=== PATIENT | female | born 1995 | race African-American/Black ===

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

== ENCOUNTER 2017-03-18 16:30 | Emergency (ER) | payer OTHER ==
[~2017-03-18] VITALS: Ht 157.5 cm; Wt 100.0 kg
[~2017-03-18 16:30] MED LIST changes: +VENLAFAXINE HC150 M1 PO
[2017-03-18 17:24] LABS: APPEARANCE SL.HAZY ((CLEAR)); BILIRUBIN NEGATIVE; BLOOD NEGATIVE; COLOR YELLOW ((YELLOW)); GLUCOSE (STRIP) NEGATIVE; KETONES NEGATIVE; LEUKOCYTES LARGE; NITRITE NEGATIVE; PROTEIN (STRIP) NEGATIVE; SPECIFIC GRAVITY 1.012 (1.000-1.030); UROBILINOGEN 0.2 MG/DL (0.2-1.0)
[2017-03-18 17:31] LABS: BACTERIA RARE /HPF; EPITHELIAL CELLS 1+ /HPF; MUCUS TRACE /LPF; RED BLOOD CELLS 0-5 /HPF (0-5)
[2017-03-18 17:33] LABS: AMPHETAMINE NEGATIVE (500 ng/mL); BARBITURATES NEGATIVE (200 ng/mL); BENZODIAZEPINES NEGATIVE (150 ng/mL); BUPRENORPHINE NEGATIVE (10 ng/mL); COCAINE NEGATIVE (150 ng/mL); METHADONE NEGATIVE (200 ng/mL); METHAMPHETAMINE NEGATIVE (500 ng/mL); OPIATES (MORPHINE) NEGATIVE (100 ng/mL); OXYCODONE NEGATIVE (100 ng/mL); PHENCYCLIDINE NEGATIVE (25 ng/mL); PROPOXYPHENE NEGATIVE (300 ng/mL); THC CANNABINOIDS NEGATIVE (50 ng/mL); TRICYCLIC ANTIDEPRESSANTS NEGATIVE (300 ng/mL)
[2017-03-18 18:05] LABS: ALBUMIN 4.2 g/dL (3.2-4.8); CHLORIDE 107 mEq/L (99-109); POTASSIUM 3.9 mEq/L (3.7-5.4); SODIUM 141 mEq/L (136-147)
[2017-03-18 18:08] LABS: GLUCOSE 98 mg/dL (70-99); TOTAL PROTEIN 7.5 g/dL (6.4-8.3)
[2017-03-18 18:09] LABS: TOTAL BILIRUBIN 0.2 mg/dL (0.0-1.0)
[2017-03-18 18:10] LABS: SERUM ETHYL ALCOHOL < 10 mg/dL
[2017-03-18 18:11] LABS: ALKALINE PHOSPHATASE 92 IU/L (3-129); CREATININE 0.7 mg/dL (0.6-1.3); GFR ESTIMATE (CALCULATED) > 59 mL/min/
[2017-03-18 18:12] LABS: UREA NITROGEN (BUN) 5 mg/dL (9-23)
[2017-03-18 18:13] LABS: AST (GOT) 23 IU/L (2-34)
[2017-03-18 18:14] LABS: ALT (GPT) 12 IU/L (3-49)
[2017-03-18 18:23] LABS: HEMATOCRIT 31.9 % (36.0-46.0); HEMOGLOBIN 9.3 G/DL (11.9-15.5); MCH 19.1 PG (29.0-34.0); MCHC 29.2 G/DL (30.0-36.0); MCV 65.6 FL (83-99); NRBC (%) 0.2 /100 WBC (0-0); PLATELET COUNT 729 K/uL (156-360); RBC DIS.WIDTH-SD 43.8 % (39-53); RED BLOOD COUNT 4.86 M/uL (3.80-5.20); WHITE BLOOD COUNT 10.1 K/uL (4.1-10.2)
[2017-03-18 20:32] VITALS: BP 126/78
== END 2017-03-18 20:48 | disposition home or self-care (01) ==
LOC: EME 16:30
PROVIDERS: Emergency Medicine
DX: F32.9 Major depressive disorder, single episode, unspecified (principal); F60.3 Borderline personality disorder; Z04.6 Encounter for general psychiatric examination, requested by authority; F43.10 Post-traumatic stress disorder, unspecified; K21.9 Gastro-esophageal reflux disease without esophagitis; F17.200 Nicotine dependence, unspecified, uncomplicated; Z88.6 Allergy status to analgesic agent
CPT/HCPCS: 80053; 81003; 85027; 90837; 99281; 99285; G0480

== ENCOUNTER 2017-04-14 13:43 | Emergency (ER) | payer OTHER ==
[~2017-04-14] VITALS: Ht 157.5 cm; Wt 98.3 kg
[2017-04-14 14:38] LABS: CHLORIDE 107 mEq/L (99-109); HEMATOCRIT 32.6 % (36.0-46.0); HEMOGLOBIN 9.4 G/DL (11.9-15.5); MCH 18.7 PG (29.0-34.0); MCHC 28.8 G/DL (30.0-36.0); MCV 64.7 FL (83-99); PLATELET COUNT 725 K/uL (156-360); POTASSIUM 3.8 mEq/L (3.7-5.4); RBC DIS.WIDTH-CV 20.2 % (11.8-14.6); RBC DIS.WIDTH-SD 44.4 % (39-53); RED BLOOD COUNT 5.04 M/uL (3.80-5.20); SODIUM 143 mEq/L (136-147); WHITE BLOOD COUNT 14.2 K/uL (4.1-10.2)
[2017-04-14 14:40] LABS: GLUCOSE 78 mg/dL (70-99)
[2017-04-14 14:44] LABS: CREATININE 0.7 mg/dL (0.6-1.3); GFR ESTIMATE (CALCULATED) > 59 mL/min/; UREA NITROGEN (BUN) 15 mg/dL (9-23)
[2017-04-14 14:51] LABS: QUANTITATIVE HCG < 4.0 MIU/ML
[2017-04-14 16:34] VITALS: BP 138/98
== END 2017-04-14 16:47 ==
LOC: EME 13:43
PROVIDERS: Emergency Medicine
DX: R55 Syncope and collapse (principal); F32.9 Major depressive disorder, single episode, unspecified; K21.9 Gastro-esophageal reflux disease without esophagitis; F43.10 Post-traumatic stress disorder, unspecified; F41.9 Anxiety disorder, unspecified; F17.200 Nicotine dependence, unspecified, uncomplicated; Z88.6 Allergy status to analgesic agent
CPT/HCPCS: 80048; 84702; 85027; 93005; 99281; 99284